=== PATIENT | female | born 1975 | race Two or more races ===

== ENCOUNTER 2017-07-18 19:26 | Emergency (ER) | payer OTHER ==
[2017-07-18 19:54] VITALS: BP 137/74; PULSE 78; TEMP 97.9; BMI 33.5
--- NOTE | 2017-07-18 19:59 | PDOC ---
History of Present Illness - General Chief Complaint: Injury Stated Complaint: FALL Time Seen by Provider: 07/18/17 19:56 Past History - Past Medical History Allergies/Adverse Reactions: Allergies Allergy/AdvReac Type Severity Reaction Status Date / Time oxycodone HCl [From Percocet] Allergy HALLUCINATI Verified 07/18/17 19:49 ONS acyclovir AdvReac VERTIGO Verified 07/18/17 19:49 Home Medications: Ambulatory Orders No Home Medications 0 dose .ROUTE UTDICT 11/07/12 Anemia: Yes (low iron) Asthma: No Cancer: No Cardiac Disorders: No CVA: No COPD: No CHF: No Dementia: No Diabetes: No GI Disorders: No Disorders: Yes (uterine fibroids) HTN: No Hypercholesterolemia: No Liver Disease: No Seizures: No Thyroid Disease: No - Surgical History Abdominal Surgery: No Appendectomy: No Cardiac Surgery: No Cholecystectomy: No Lung Surgery: No Neurologic Surgery: No Orthopedic Surgery: No - Suicide/Smoking/Psychosocial Hx Smoking Status: No Smoking History: Never smoked Have you smoked in the past 12 months: No Number of Cigarettes Smoked Daily: 0 Hx Alcohol Use: Yes (SOCIAL) Drug/Substance Use Hx: No Substance Use Type: None Hx Substance Use Treatment: No *Physical Exam - Vital Signs Last Vital Signs Temp Pulse Resp BP Pulse Ox 97.9 F 78 18 137/74 100 07/18/17 19:49 07/18/17 19:49 07/18/17 19:49 07/18/17 19:49 07/18/17 19:49 ED Treatment Course - RADIOLOGY Radiology Studies Ordered: Category Date Time Status ANKLE & FOOT-RIGHT* [RAD] Stat Radiology 07/18/17 19:55 Ordered *DC/Admit/Observation/Transfer Diagnosis at time of Disposition: Right ankle sprain Qualifiers: Encounter type: initial encounter Involved ligament of ankle: unspecified ligament Qualified Code(s): S93.401A - Sprain of unspecified ligament of right ankle, initial encounter - Discharge Dispostion Disposition: HOME Admit: No - Referrals Referrals: Marcy Cortés MD [Primary Care Provider] - Macario Farfan MD [Staff Physician] - - Patient Instructions Printed Discharge Instructions: DI for Ankle Sprain Additional Instructions: You sprained her ankle. Her x-ray was negative for fracture. Please take 800 mg of ibuprofen 3 times a day not to exceed 3000 mg per day. Please ice the ankle for 20 minute periods 5 times a day. Keep the ankle elevated while at rest. Wear the Hieu wrap and Aircast for comfort. Please follow-up with orthopedics in 3-5 days if you're ankle symptoms are not improving. Return to the emergency department if you have worsening pain, numbness and tingling in the foot, weakness in the foot, or any changes in your symptoms - Post Discharge Activity Forms/Work/School Notes: Back to Work
[2017-07-18] MEDS ORDERED: IBUPROFEN 400 MG TABLET (FP) PO ONE ×2 (20:37→20:41)
== END 2017-07-18 21:11 | disposition home or self-care (01) ==
LOC: JERFT 19:26
PROC: 2W3QX1Z Immobilization of Right Lower Leg using Splint (ICD-10-PCS; principal; 2017-07-18)
DX: S93.401A Sprain of unspecified ligament of right ankle, initial encounter (principal); W18.39XA Other fall on same level, initial encounter; Y93.89 Activity, other specified; Y92.9 Unspecified place or not applicable
CPT/HCPCS: 29515; 73610-TC-RT; 73630-TC-RT; 99281-25

== ENCOUNTER 2019-03-16 17:57 | Emergency (ER) | payer OTHER ==
[2019-03-16 18:17] VITALS: BP 114/72; PULSE 85; TEMP 98.1; BMI 31.8
[2019-03-16] MEDS ORDERED: NAPROXEN 500 MG TABLET (FP) PO ONE (18:50)
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
== END 2019-03-16 18:53 | disposition home or self-care (01) ==
LOC: JERFT 17:57
DX: M54.2 Cervicalgia (principal); M54.6 Pain in thoracic spine; V43.62XA Car passenger injured in collision with other type car in traffic accident, initial encounter; Y92.488 Other paved roadways as the place of occurrence of the external cause; Y93.89 Activity, other specified; Y99.8 Other external cause status
CPT/HCPCS: 99281-25

== ENCOUNTER 2020-10-08 11:02 | Emergency (ER) | payer OTHER ==
[2020-10-08 11:12] VITALS: BP 152/84; PULSE 77; TEMP 98.6; BMI 35.4
[2020-10-08] MEDS ORDERED: SODIUM CHLORIDE 0.9% 500 ML INFUS.BAG IV ONE (12:19)
[2020-10-08 12:42] LABS: BASO % 0.9 % (0-2.0); EOS % 1.5 % (0-4.5); HEMATOCRIT 43.4 % (32.4-45.2); HEMOGLOBIN 14.8 GM/dL (10.7-15.3); LYMPH % 24.9 % (8-40); MCH 31.2 pg (25.7-33.7); MCHC 34.1 g/dl (32.0-36.0); MEAN CELL VOLUME 91.5 fl (80-96); MEAN PLT VOLUME 7.7 fl (7.5-11.1); MONO % 7.2 % (3.8-10.2); NEUT % 65.5 % (42.8-82.8); PLATELET COUNT 243 K/MM3 (134-434); RBC 4.75 M/mm3 (3.60-5.2); RDW 13.2 % (11.6-15.6); WHITE BLOOD COUNT 7.7 K/mm3 (4.0-10.0)
[2020-10-08 12:52] LABS: INR 0.97 (0.83-1.09)
[2020-10-08 13:13] LABS: POTASSIUM 4.2 mmol/L (3.5-5.1)
[2020-10-08 13:15] LABS: BLOOD UREA NITROGEN 11.7 mg/dL (7-18); CALCIUM 9.1 mg/dL (8.5-10.1)
[2020-10-08 13:18] LABS: CREATININE 0.8 mg/dL (0.55-1.3)
[2020-10-08 13:20] LABS: BILIRUBIN,TOTAL 0.8 mg/dL (0.2-1); TOT PROT 7.3 g/dl (6.4-8.2)
[2020-10-08 13:57] LABS: EPI CELLS 2 /uL (0-25.1); HYALINE CASTS 0 /uL (0-3.1); PH,URINE 6.5 (5.0-8.0); URINE APPEARANCE CLEAR; URINE BACTERIA 157 /uL (0-1359); URINE BILIRUBIN NEGATIVE (NEGATIVE); URINE COLOR YELLOW; URINE GLUCOSE (UA) NEGATIVE (NEGATIVE); URINE KETONE NEGATIVE (NEGATIVE); URINE LEUK ESTERASE NEGATIVE (NEGATIVE); URINE NITRITE NEGATIVE (NEGATIVE); URINE PROTEIN NEGATIVE (NEGATIVE); URINE RBC 3 /uL (0-23.9); URINE UROBILINOGEN 0.2 mg/dL (0.2-1.0); URINE WBC 4 /uL (0-25.8)
[2020-10-08 13:58] LABS: HCG,QUALITATIVE URINE Negative
== END 2020-10-08 15:14 | disposition home or self-care (01) ==
LOC: JER 11:02
DX: K62.5 Hemorrhage of anus and rectum (principal)
CPT/HCPCS: 36415; 80053; 81003; 82272; 84703; 85025; 85610; 85730; 86850; 86900; 86901; 87086; 99284-25

== ENCOUNTER 2023-03-15 13:19 | Emergency (ER) | payer OTHER ==
[2023-03-15 13:27] VITALS: BP 152/90; PULSE 86; RESP 18; TEMP 98; BMI 31.6
[2023-03-15] MEDS ORDERED: LACTATED RINGERS SOLUTION 1000 ML INFUS.BAG IV ONE (14:18)
[2023-03-15] MEDS ORDERED: diazePAM 5 MG TABLET PO ONE (14:20)
[2023-03-15] MEDS ORDERED: diazePAM 5 MG TABLET ONE (14:29)
[2023-03-15 14:46] LABS: BASO % 0.9 % (0-2.0); EOS % 2.1 % (0-4.5); HEMOGLOBIN 14.8 GM/dL (10.7-15.3); LYMPH % 23.7 % (8-40); MCH 31.5 pg (25.7-33.7); MCHC 32.8 g/dl (32.0-36.0); MEAN CELL VOLUME 95.9 fl (80-96); MEAN PLT VOLUME 7.7 fl (7.5-11.1); MONO % 9.3 % (3.8-10.2); PLATELET COUNT 199 10^3/uL (134-434); RBC 4.69 M/mm3 (3.60-5.2); RDW 12.9 % (11.6-15.6); WHITE BLOOD COUNT 5.2 K/mm3 (4.0-10.0)
[2023-03-15 15:08] LABS: BLOOD UREA NITROGEN 8.6 mg/dL (7-18); CALCIUM 9.1 mg/dL (8.5-10.1)
[2023-03-15 15:11] LABS: CREATININE 0.9 mg/dL (0.55-1.3)
[2023-03-15 15:13] LABS: BILIRUBIN,TOTAL 4.7 mg/dL (0.2-1); TOT PROT 7.4 g/dl (6.4-8.2)
[2023-03-15 17:43] LABS: BILIRUBIN,DIRECT 0.8 mg/dL (0.0-0.2)
[2023-03-15 20:20] LABS: INR 1.16 (0.83-1.09); PROTHROMBIN TIME (PATIENT) 13.4 SEC (9.7-13.0)
[2023-03-15 20:22] LABS: ACTIVATED PTT 26.5 SECONDS (25.2-36.5)
== END 2023-03-15 20:49 | disposition home or self-care (01) ==
LOC: JER 13:19
DX: R53.1 Weakness (principal); R53.81 Other malaise; F10.10 Alcohol abuse, uncomplicated; Y90.9 Presence of alcohol in blood, level not specified
CPT/HCPCS: 36415; 76705-TC; 80053; 82248; 84484; 85025; 85610; 85730; 99284-25

== ENCOUNTER 2023-04-19 19:20 | Emergency (ER) | payer OTHER ==
[2023-04-19 19:33] VITALS: BP 145/94; PULSE 90; RESP 18; TEMP 98.2; BMI 34.5
[2023-04-19] MEDS ORDERED: IBUPROFEN 600 MG TABLET (FP) PO ONE ×2 (21:23→21:35)
== END 2023-04-19 21:36 | disposition home or self-care (01) ==
LOC: JERFT 19:20 → JER 19:20 → JERFT 21:36
DX: R51.9 Headache, unspecified (principal); R50.9 Fever, unspecified; Z20.822 Contact with and (suspected) exposure to COVID-19
CPT/HCPCS: 0241U-QW; 99283-25